=== PATIENT | female | born 1990 | race Caucasian/White ===

== ENCOUNTER 2023-11-21 08:19 | Observation (INO) | payer BC, SELFPAY ==
[2023-11-21] VITALS (16 sets, daily range): BP systolic 118–143; BP diastolic 72–98; PULSE 68–85; TEMP 36.6–36.9; BMI 30.1
--- NOTE | ~2023-11-21 | US_ITS ---
EXAMINATION: US OB limited DATE: 11/21/2023 09:47 INDICATION: Vaginal bleeding TECHNIQUE: Real-time ultrasound of the pelvis was performed. The interpreting radiologist was not pre sent for the study. COMPARISON: None. FINDINGS: There is a single living fetus in vertex presentation. The normal-appearing placenta is anterior and not low-lying with caudal margin greater than 10 cm from the internal cervical os. Normal cervical l ength of 3.7 cm. heart rate is 121 beats per minute (bpm). IMPRESSION: 1. Single living fetus in vertex presentation with heart rate of 121 bpm. 2. Normal-appearing anterior placenta which is not low-lying. Reviewed, dictated and finalized at location A. IMPRESSION: 1. Single living fetus in vertex presentation with heart rate of 121 bpm . 2. Normal-appearing anterior placenta which is not low-lying.
--- NOTE | 2023-11-21 09:00 | OBADM ---
This patient, Heide Wills, admitted to the OB room OB Post 112 for observation. Patient/family oriented to hospital policies and general routines including ID bracelet, bed and alarms, visiting hours, pain management, procedures, bathroom and other care routines, personal items, smoking policy, room service/diet, and visiting hours. Patient/Family are encouraged to report perceived risks to care and to ask questions if they do not understand what they are told or what they should do.
[2023-11-21 11:23] LABS: Add Urine Microscopic? NO; Appearance Urine Clear (Clear); Bilirubin Urine Negative (Negative); Blood Urine Negative (Negative); Color Urine Yellow (Yellow); Glucose Urine UA Negative (Negative); Ketones Urine Negative (Negative); Leukocyte Esterase Ur Negative LEU/UL (Negative); Nitrate Urine Negative (Negative); Protein Urine Negative (Negative); Specific Grav Ur 1.011 (1.001-1.035); Urobilinogen Urine 0.2 mg/dL (<2.0); pH Urine 7.5 (5.0-9.0)
[2023-11-21] MEDS: NIFEdipine 10 MG CAPSULE PO ×3 (13:21→15:34)
--- NOTE | 2023-12-16 10:29 | PM.OBTRLD ---
OB - Triage/Final Diagnosis Visit Information Comments/Additional reasons for admission: I have assessed the risk for this patient, Heide Wills, and determined that she would benefit from observation care. Evaluation Laboratory results: Laboratory Tests 11/21/23 11:15 Urine Color Yellow Urine Appearance Clear Urine pH 7.5 Ur Specific [place] 1.011 Urine Protein Negative Urine Glucose (UA) Negative Urine Ketones Negative Ur Blood (Man) Negative Urine Nitrate Negative Urine Bilirubin Negative Urine Urobilinogen 0.2 Leukocyte Esterase Rfl Negative Final Diagnosis (1) Vaginal bleeding: Code(s): N93.9 - Abnormal uterine and vaginal bleeding, unspecified Status: Acute
== END 2023-11-21 17:30 | disposition home or self-care (01) ==
PROVIDERS: Admitting Provider Obstetrics & Gynecology; PCP Physician Assistant; Visit Provider Obstetrics & Gynecology
DX: O46.93 Antepartum hemorrhage, unspecified, third trimester (principal); Z3A.33 33 weeks gestation of pregnancy
CPT/HCPCS: 76815; 81003; A9270; G0378; G0379

== ENCOUNTER 2023-12-17 14:10 | Inpatient (IN) | payer BC, SELFPAY ==
[2023-12-17] VITALS (37 sets, daily range): BP systolic 111–156; BP diastolic 63–126; PULSE 62–103; TEMP 36.6–36.7; BMI 29.3
[2023-12-17 12:48] LABS: Basophils Percent Auto 0.3 % (0.2-1.2); Eosinophils Absolute Auto 0.1 K/mm3 (0-0.3); Eosinophils Percent Auto 1.1 % (0-4.4); Hematocrit 31.2 % (37.0-47.0); Hemoglobin 10.8 g/dL (12.0-15.0); Immature Granulocyte Absolute 0.02 K/mm3 (0.00-0.031); Immature Granulocyte Percent A 0.2 % (0-0.5); Lymphocytes Absolute Auto 2.49 K/mm3 (0.9-3.2); Lymphocytes Percent Auto 28.2 % (18.3-44.2); Mean Corpuscular HGB Conc 34.6 g/dl (32-36); Mean Corpuscular Volume 92.3 fl (80-100); Mean Platelet Volume 11.1 fl (7.4-10.4); Monocytes Absolute Auto 0.6 K/mm3 (0.1-0.6); Monocytes Percent Auto 6.5 % (2.6-8.5); Neutrophils Absolute Auto 5.6 K/mm3 (1.3-6.7); Neutrophils Percent Auto 63.7 % (45.5-73.1); Platelet Count Result 233 k/mm3 (150-375); Red Blood Count 3.38 M/mm3 (4.2-5.4); Red Cell Distribution Width 13.1 % (11.5-14.5); White Blood Count 8.8 K/mm3 (4.5-10.0)
[2023-12-17 12:54] LABS: Add Urine Microscopic? YES; Appearance Urine Clear (Clear); Bacteria Urine 1+ /hpf; Bilirubin Urine Negative (Negative); Blood Urine Negative (Negative); Color Urine Yellow (Yellow); Glucose Urine UA Negative (Negative); Ketones Urine Negative (Negative); Leukocyte Esterase Ur 1+ LEU/UL (Negative); Nitrate Urine Negative (Negative); Non Pathogenic Casts 0-2; Protein Urine Negative (Negative); RBC Urine 0-2 /hpf (0-2); Specific Grav Ur 1.015 (1.001-1.035); Squamous Epithelial Cell Urine None Seen /hpf (Few); Urobilinogen Urine 0.2 mg/dL (<2.0); pH Urine 6.5 (5.0-9.0)
[2023-12-17 13:02] LABS: Alanine Aminotransferase 14 U/L (6-35); Albumin Level 3.4 g/dL (3.5-5.1); Alkaline Phosphatase 149 U/L (38-126); Anion Gap 8 mmol/L (4-12); Aspartate Amino Transferase 27 U/L (14-36); Bilirubin,Total 0.1 mg/dL (0.2-1.3); Blood Urea Nitrogen 16 mg/dL (7-17); Carbon Dioxide 21 mmol/L (22-30); Chloride 105 mmol/L (98-107); Estimated Glomerular Filt Rate > 60; Glucose 107 mg/dL (65-110); Potassium 3.9 mmol/L (3.4-5.0); Sodium 134 mmol/L (137-145); Uric Acid 6.3 mg/dL (2.5-7.5)
[2023-12-17 13:38] LABS: Creatinine Urine 114.3 mg/dL; Total Protein Urine Random 14 mg/dL; Ur Ttl Prot Creatinine Ratio 0.12 mg/mg (0-0.20)
--- NOTE | 2023-12-17 14:10 | PC.NURSE ---
Dr. Grant on unit. Reviewed lab results, BP's, and reactive NST. Order received to admit pt for induction of labor when personnel available to start induction.
--- NOTE | 2023-12-17 14:13 | PM.IMHP ---
H&P: HPI History of Present Illness Date/Time: 12/17/23 14:13 Chief Complaint: nausea, vomiting, vision changes, elevated BP Narrative: Patient is a 33 year old at 37w0d who presents for nausea and vomiting with visual changes at home. She denies recent illness. She reports visual floaters and blurry vision following an episode of vomiting this morning. She reports good movement. She denies strong contractions, leakage of fluid, vaginal bleeding, headaches, chest pain, dyspnea, RUQ pain or epigastric pain. She had an elevated BP last week in clinic. Her has been otherwise uncomplicated. Review of Systems Review of Systems: All systems reviewed & are unremarkable except as noted in HPI and below PMFSH Family History Family History (Updated 12/10/23 @ 15:26 by Janet Carr RN) Mother Heart valve replaced Father Diverticula of colon Other Cancer Social History Social History Substance use: never Spiritual care concerns: No Meds Home Medications and Allergies Home Medications Medication Instructions Recorded Confirmed Type bupropion HCl 150 mg 24 hr tablet, 150 mg PO DAILY 11/21/23 12/10/23 History extended release levothyroxine 25 mcg tablet 25 mcg PO DAILY 11/21/23 12/10/23 History sertraline 50 mg tablet 50 mg PO DAILY 11/21/23 12/10/23 History ferrous sulfate 325 mg (65 mg 325 mg PO DAILY 12/10/23 12/10/23 History iron) tablet vits no.126-ferrous fum 1 tablet PO DAILY 12/10/23 12/10/23 History 28 mg iron-folic acid 800 mcg tablet (Classic ) Allergies Allergy/AdvReac Type Severity Reaction Status Date / Time erythromycin base Allergy Intermediate Vomiting Verified 12/10/23 15:20 Vital Signs Vital Signs - 24 hr 12/17/23 12:30 12/17/23 12:45 12/17/23 13:00 Pulse Rate 77 74 67 Blood Pressure 127/85 134/84 133/86 12/17/23 13:15 12/17/23 13:30 12/17/23 13:45 Pulse Rate 70 75 73 Blood Pressure 131/88 131/96 H 132/92 H 12/17/23 14:00 Pulse Rate 75 Blood Pressure 154/101 H Exam Const: General: comfortable and no acute distress HENMT: Mouth: Yes moist mucous membranes Resp: Effort & Inspection: normal respiratory effort Cardio: Rate: regular rate Skin: General skin exam: normal color Extrem: General: normal to inspection Psych: Mental Status: mental status grossly normal H&P: Results Labs Labs: Short CBC 12/17/23 Range/Units 12:37 WBC 8.8 (4.5-10.0) K/mm3 Hgb 10.8 L (12.0-15.0) g/dL Hct 31.2 L (37.0-47.0) % Plt Count 233 (150-375) k/mm3 BMP 12/17/23 12:37 Sodium 134 L Potassium 3.9 Chloride 105 Carbon Dioxide 21 L BUN 16 Creatinine 1.00 Glucose 107 Calcium 9.0 Liver Function 12/17/23 Range/Units 12:37 Total Bilirubin 0.1 L (0.2-1.3) mg/dL AST 27 (14-36) U/L ALT 14 (6-35) U/L Alkaline Phosphatase 149 H (38-126) U/L Albumin 3.4 L (3.5-5.1) g/dL Urine 12/17/23 Range/Units 12:37 Urine Color Yellow (Yellow) Urine Appearance Clear (Clear) Urine pH 6.5 (5.0-9.0) Ur Specific [place] 1.015 (1.001-1.035) Urine Protein Negative (Negative) mg/dL Urine Glucose (UA) Negative (Negative) mg/dL Assessment and Plan Assessment and plan (1) Gestational hypertension: Code(s): O13.9 - Gestational [-induced] hypertension without significant proteinuria, unspecified trimester Status: Acute Assessment and Plan: - some visual floaters but otherwise asymptomatic - BP 120s-150s/80s-90s while admitted; 1 previous elevated BP in office - labs wnl - discussed diagnosis of gHTN at term and recommendation for delivery; patient voices understanding and agrees to proceed with medical induction of labor (2) Encounter for induction of labor: Code(s): Z34.90 - Encounter for supervision of normal , unspecified, unspecified trimester Status: Acute Assessment and Plan:
--- NOTE | 2023-12-17 14:20 | PC.NURSE ---
Pt making calls and eating lunch. Informed to call out when she is done eating and we will move her to labor room 103, but it will be awhile before a nurse is available to start her induction. Pt to notify us if she starts feeling her contractions.
[2023-12-17 16:41] LABS: Rapid Plasma Reagin Non-Reactive (NonReactive)
[2023-12-17 16:46] LABS: HIV 1/2 Ab P24 Ag Result Negative (Negative)
[2023-12-17] MEDS: miSOPROStol 25 MCG TABLET 50 MCG VAGINAL ×2 (17:56→22:15)
--- NOTE | 2023-12-17 18:01 | LDADM ---
This patient, Heide Wills, was admitted to Labor/Delivery/Recovery 103 on 12/17/23 at 14:10. Plans for labor, pain management and were discussed with patient. Patient/family oriented to hospital policies and general routines including ID bracelet, bed and alarms, visiting hours, pain management, procedures, bathroom and other care routines, personal items, smoking policy, room service/diet and guest tray routines, security routines, and visiting hours. Patient/Family are encouraged to report perceived risks to care and to ask questions if they do not understand what they are told or what they should do. See OBIX for further documentation.
[2023-12-17] MEDS: LACTATED RINGERS 1,000 ML 125 ML IV CONT (23:51)
[2023-12-18] VITALS (148 sets, daily range): BP systolic 103–156; BP diastolic 55–110; PULSE 65–147; RESP 16–20; TEMP 36.6–37.1; O2SAT 94–100
--- NOTE | 2023-12-18 01:02 | WPDANESEPPF ---
Anes - Initial Pre Proc Eval Date/Time: 12/18/23 01:02 Surgeon: Austen Grant MD Pre Op Diagnosis: PIH Eval Patient Data Age: 33 Gender: F Height: 1.7 m Weight: 85 kg Last Vital Signs Temp 36.7 C 12/17/23 22:15 Pulse 76 12/18/23 01:00 BP 124/79 12/18/23 01:00 Pulse Ox 100 12/18/23 00:58 O2 Del Method Room Air 12/17/23 18:00 Allergies Allergy/AdvReac Type Severity Reaction Status Date / Time erythromycin base Allergy Intermediate Vomiting Verified 12/10/23 15:20 Home Medications Medication Instructions Recorded Confirmed Type bupropion HCl 150 mg 24 hr tablet, 150 mg PO DAILY 11/21/23 12/17/23 History extended release levothyroxine 25 mcg tablet 25 mcg PO DAILY 11/21/23 12/17/23 History sertraline 50 mg tablet 50 mg PO DAILY 11/21/23 12/17/23 History ferrous sulfate 325 mg (65 mg 325 mg PO DAILY 12/10/23 12/17/23 History iron) tablet vits no.126-ferrous fum 1 tablet PO DAILY 12/10/23 12/17/23 History 28 mg iron-folic acid 800 mcg tablet (Classic ) Laboratory Tests 12/17/23 12/17/23 12/17/23 12:37 12:38 15:41 WBC 8.8 K/mm3 (4.5-10.0) RBC 3.38 L M/mm3 (4.2-5.4) Hgb 10.8 L g/dL (12.0-15.0) Hct 31.2 L % (37.0-47.0) MCV 92.3 fl (80-100) MCH 32.0 pg (26-34) MCHC 34.6 g/dl (32-36) RDW 13.1 % (11.5-14.5) Plt Count 233 k/mm3 (150-375) MPV 11.1 H fl (7.4-10.4) Immature Gran % (Auto) 0.2 % (0-0.5) Neut % (Auto) 63.7 % (45.5-73.1) Lymph % (Auto) 28.2 % (18.3-44.2) [place] % (Auto) 6.5 % (2.6-8.5) Eos % (Auto) 1.1 % (0-4.4) Baso % (Auto) 0.3 % (0.2-1.2) Lymph # (Auto) 2.49 K/mm3 (0.9-3.2) [place] # (Auto) 0.6 K/mm3 (0.1-0.6) Eos # (Auto) 0.1 K/mm3 (0-0.3) Baso # (Auto) 0.0 K/mm3 (0.0-0.1) Abs Immat Gran (auto) 0.02 K/mm3 (0.00-0.031) Absolute Neuts (auto) 5.6 K/mm3 (1.3-6.7) Absolute Nucleated RBC 0.000 K/mm3 (0.0-0.012) Nucleated RBC % 0.0 % (0.0-0.2) Sodium 134 L mmol/L (137-145) Potassium 3.9 mmol/L (3.4-5.0) Chloride 105 mmol/L (98-107) Carbon Dioxide 21 L mmol/L (22-30) Anion Gap 8 mmol/L (4-12) BUN 16 mg/dL (7-17) Creatinine 1.00 mg/dL (0.7-1.0) Estim Creat Clear Calc Not Reportable Estimated GFR > 60 (59 - ) Glucose 107 mg/dL (65-110) Uric Acid 6.3 mg/dL (2.5-7.5) Calcium 9.0 mg/dL (8.4-10.2) Total Bilirubin 0.1 L mg/dL (0.2-1.3) AST 27 U/L (14-36) ALT 14 U/L (6-35) Alkaline Phosphatase 149 H U/L (38-126) Total Protein 7.0 g/dL (6.3-8.2) Albumin 3.4 L g/dL (3.5-5.1) Urine Color Yellow (Yellow) Urine Appearance Clear (Clear) Urine pH 6.5 (5.0-9.0) Ur Specific [place] 1.015 (1.001-1.035) Urine Protein Negative mg/dL (Negative) Urine Glucose (UA) Negative mg/dL (Negative) Urine Ketones Negative mg/dL (Negative) Ur Blood (Man) Negative (Negative) Urine Nitrate Negative (Negative) Urine Bilirubin Negative (Negative) Urine Urobilinogen 0.2 mg/dL (<2.0) Leukocyte Esterase Rfl 1+ H FREDERIC/UL (Negative) Urine RBC 0-2 /hpf (0-2) Urine WBC 6-10 H /hpf (0-3) Ur Squamous Epith Cells None seen /hpf (Few) Urine Bacteria 1+ H /hpf Urine Casts 0-2 U Random Total Protein 14 mg/dL Urine Creatinine 114.3 mg/dL Protein/Creat Ratio 2 0.12 mg/mg (0-0.20) RPR Non-reactive (NonReactive) HIV 1&2 Ab/P24 Ag 4thGn Negative (Negative
[2023-12-18] MEDS: TERBUTALINE SULFATE 1 MG/ML VIAL 0.25 MG SUB-Q ×2 (01:54→02:39)
[2023-12-18] MEDS: LACTATED RINGERS 1,000 ML 125 ML IV CONT ×2 (02:40→03:06)
[2023-12-18] MEDS: ONDANSETRON INJ 4 MG/2 ML VIAL IV PUSH (05:31)
[2023-12-18] MEDS: OXYTOCIN 30 UNITS/NS 500 ML 30 UNITS/500 ML BAG 999 UNITS IV CONT (09:12)
[2023-12-18] MEDS: OXYTOCIN 30 UNITS/NS 500 ML 30 UNITS/500 ML BAG 125 UNITS IV CONT (09:44)
[2023-12-18] MEDS: WITCH HAZEL 40 PADS 1 PAD TOPICAL (11:13)
[2023-12-18] MEDS: IBUPROFEN 600 MG TABLET PO ×2 (11:14→22:30)
[2023-12-18] MEDS: BENZOCAINE 20% AER SPR (*SP) 56 GM CAN 1 SPRAY TOPICAL (11:14)
--- NOTE | 2023-12-18 11:50 | OBPPTRN ---
Patient transferred to post room #279 via wheelchair. Support person present. Oriented to unit, room, information board, rooming in, admission packet and security measures. Patient verbalizes understanding.
--- NOTE | 2023-12-18 13:42 | WPDANLDPN2 ---
Anes-Prog Note L&D Date/Time: 12/18/23 13:42 Comfortable throughout: labor and delivery Neuraxial method: epidural Epidural/Spinal procedure site: clean & non-tender Neuro status: Neuro function grossly intact. Cardiovascular status: normal Respiratory status: normal Airway patency: baseline Mental status: baseline Post-Op hydration status: normal Vital Signs: Last Vital Signs Temp 36.7 C 12/18/23 12:10 Pulse 70 12/18/23 12:10 Resp 16 12/18/23 12:10 BP 128/75 12/18/23 12:10 Pulse Ox 96 12/18/23 12:10 O2 Del Method Room Air 12/17/23 18:00 Pain score (VAS): 1 I/O: Intake & Output 12/17/23 12/18/23 12/18/23 23:59 07:59 15:59 Intake Total 1352.1 500 Output Total 200 Balance 1352.1 300 Post-procedural complaints: none Patient feedback: Patient satisfied with anesthetic care.
--- NOTE | 2023-12-18 16:52 | PC.NURSE ---
Breast pump provided due to in level 2 nursery on CPAP and mother is unable to put to breast. Instructions given on cleaning, care, usage, that there should be no pain, pumping schedule for milk production, collection, and storage of human milk. Patient was assessed for correct placement, flange size, to pump for comfort and nipple stretching/stimulation for adequate milk production every 3 hours (8 times in 24 hours) 1-2 times at night. Patients nipple size is 23mm, she is using a size 27mm flange for the [facility] pump. Patient also brought her pump from home (was missing pieces) - instructions were provided on how to assemble her personal breastpump and we did this together. Educated patient that she is a size 28mm flange for her Spectra S1 pump. Parents are encouraged to record the pumping schedule on the feeding sheet.?Mother voiced understanding of the education shared along with mom/baby guide and the pump measurement, flange fit handout for additional resource information. Reported to the Primary RN.
[2023-12-18] MEDS: DOCUSATE SODIUM 100 MG CAPSULE PO (17:31)
--- NOTE | 2023-12-18 22:47 | PM.OBPRVD ---
OB - Vaginal Delivery Note Procedure Delivery date: 12/18/23 Events: Gestational Hypertension Induction method: Per Misoprostol Protocol Delivery monitor: External FHT and Internal Uterine Route of delivery: Episiotomy description: None Laceration Description: Periurethral and Perineal - 2nd Degree Delivery repair: vicryl Specimen: No Quantitative Blood Loss (ml): 200 Anesthesia type: Epidural Disposition: Floor Complications: No immediate complications Narrative: See H&P and notes for details on patient's admission and labor. She progressed to complete cervical dilation and at the appropriate time began pushing. With adequate expulsive efforts by the mother, the baby's head was delivered without difficulty. Nuchal cord was present and was delivered through. The baby's right shoulder was anterior and delivered under the pubic symphysis without difficulty. The posterior shoulder and the rest of the baby delivered without difficulty. The umbilical cord was doubly clamped and cut after 20 seconds of delayed cord clamping. Care of the infant was then assumed by the nursing staff. Baby Date of : 12/18/23 Gestational Age by Date: 37 gender: Female presentation: vertex position: Left Occiput Anterior Placenta delivery description: Expressed Cord Vessel Description: 3 Vessels, Nuchal Cord and Tight
[2023-12-19 03:38] VITALS: BP 124/82
[2023-12-19 05:39] LABS: Hemoglobin 8.4 g/dL (12.0-15.0)
[2023-12-19] MEDS: POLYSACCHARIDE IRON COMPLEX 150 MG CAPSULE PO (08:22)
[2023-12-19] MEDS: MULTIVIT/MIN/PREN/FOL AC/IRON TABLET 1 TAB PO (08:23)
[2023-12-19] MEDS: DOCUSATE SODIUM 100 MG CAPSULE PO (08:23)
[2023-12-19] MEDS: IBUPROFEN 600 MG TABLET PO (08:23)
--- NOTE | 2023-12-19 08:35 | PM.OBPNVD ---
OB - PN: Subj Subjective Date/time seen: 12/19/23 08:35 Patient comments: no complaints, pain well controlled, incisional pain, tolerating diet and flatus present OB - PN: Obj Data Labs 12/19/23 03:35 12/17/23 12:37 Labs: Laboratory Results - last 24 hr 12/19/23 03:35 Hgb 8.4 L Hct 25.0 L OB - PN A/P Plan day: 1 Plan: routine care Comments: No problems, routine care Time Spent With Patient Time: Total time spent is greater than 50% in coordination of care (as documented) at patient's floor/unit and/or counseling patient: Exam Const: General: comfortable, no acute distress and alert Resp: Effort & Inspection: normal respiratory effort Auscultation: no crackles, no rales and no rhonchi Cardio: Rate: regular rate Heart sounds: no click, no murmurs and no rubs GI: Inspection: non-distended GI Palp: No Tenderness to palpation present (GI) Auscultation: normal bowel sounds Other: Incision - CDI Extrem: General: normal to inspection, no pedal edema and no calf tenderness
[2023-12-19 08:50] VITALS: BP 116/74; PULSE 72; RESP 16; TEMP 36.6; O2SAT 100
--- NOTE | 2023-12-19 10:00 | PC.NURSE ---
Consulted with mother concerning needs and she shared that she breastfed baby while she was in Level 2 nursery and that she has been pumping regularly through the night. Mother is comfortable with pumping and she knows that consistency is important. Encouraged her to take her pump parts to use in the NICU. Reinforced understanding of milk production, transition of milk, prevention/relief of engorgement, plugged ducts, mastitis, community resources, and how to contact Services. She was given the pumping primer and has the mom baby guide for reference. Mother voiced understanding of the information shared, is confident to continue pumping at home, when to call for assistance, denies any additional assistance or education at this time. Reported to the Primary RN.
--- NOTE | 2023-12-19 14:36 | WPDANLDPN2 ---
Anes-Prog Note L&D Date/Time: 12/19/23 14:36 Comfortable throughout: labor and delivery Neuraxial method: epidural Epidural/Spinal procedure site: clean & non-tender Neuro status: Neuro function grossly intact. Cardiovascular status: normal Respiratory status: normal Airway patency: baseline Mental status: baseline Post-Op hydration status: normal Vital Signs: Last Vital Signs Temp 36.6 C 12/19/23 08:50 Pulse 72 12/19/23 08:50 Resp 16 12/19/23 08:50 BP 116/74 12/19/23 08:50 Pulse Ox 100 12/19/23 08:50 O2 Del Method Room Air 12/18/23 19:26 Pain score (VAS): 0 I/O: Intake & Output 12/18/23 12/19/23 12/19/23 23:59 07:59 15:59 Intake Total 740 Output Total 800 Balance -60 Post-procedural complaints: none Patient feedback: Patient satisfied with anesthetic care.
[2023-12-20 13:10] VITALS: BP 124/75; PULSE 79; RESP 18; TEMP 36.7; O2SAT 100
== END 2023-12-19 12:15 | disposition home or self-care (01) | DRG 807 ==
LOC: ANHOBOP 14:36 → ANHOBPP 14:36 → ANHLDR 14:43 → ANHOB2 12-18 11:52
PROVIDERS: Admitting Provider Obstetrics & Gynecology; PCP Physician Assistant; Visit Provider Obstetrics & Gynecology
DX: O13.4 Gestational [pregnancy-induced] hypertension without significant proteinuria, complicating childbirth (principal); Z37.0 Single live birth; Z3A.37 37 weeks gestation of pregnancy; O70.1 Second degree perineal laceration during delivery; O71.82 Other specified trauma to perineum and vulva; O69.1XX0 Labor and delivery complicated by cord around neck, with compression, not applicable or unspecified
CPT/HCPCS: 36415; 59025; 80053; 81001; 82570; 84156; 84550; 85014; 85018; 85025; 86592; 86703; 86850; 86900; 86901; 87086; 87088; A9270; G0432; J2405; J2590; J2795; J3105; J7120